=== PATIENT | male | born 1985 | race Caucasian/White ===

== ENCOUNTER 2016-04-06 19:31 | Emergency (ER) | payer BC ==
[2016-04-06 20:51] VITALS: BP 139/90; TEMP 98.3
--- NOTE | 2016-04-06 21:02 | ED.PDOC ---
History of Present Illness - General Chief Complaint: Bite: Animal/Insect/Human Stated Complaint: dog bite Time Seen by Provider: 04/06/16 20:57 Source: patient, RN notes reviewed, Vital Signs reviewed Exam Limitations: no limitations Additional Information: Stated he was serving a warrant and the persons dog that he was issuing a warrant suddenly bit him on his left thigh about 2 hours ago unprovoked and able to got the dog for quarantine. - History of Present Illness Timing/Duration: 1-3 hours Severity: mild Improving Factors: nothing Worsening Factors: nothing Allergies/Adverse Reactions: Allergies NO KNOWN ALLERGY Allergy (Verified 05/18/15 13:45) Home Medications: Ambulatory Orders Amoxicillin & Pot Clavulanate [Augmentin Xr 1000-62.5 mg] 1 tab PO BIDAC #20 tab 04/06/16 Review of Systems - Review of Systems Constitutional: States: no symptoms reported EENTM: States: no symptoms reported Respiratory: States: no symptoms reported Cardiology: States: no symptoms reported Gastrointestinal/Abdominal: States: no symptoms reported Genitourinary: States: no symptoms reported Musculoskeletal: States: no symptoms reported Skin: States: other - dog bite Neurological: States: no symptoms reported Endocrine: States: no symptoms reported Hematologic/Lymphatic: States: no symptoms reported Past Medical History (General) - Patient Medical History Hx MRSA: No Surgical History: no surgical history - Vaccination History Hx Tetanus, Diphtheria Vaccination: Yes - 2 yrs ago Hx Influenza Vaccination: No - Social History Hx Tobacco Use: Yes - Triage Comment ED Triage Comment: bruised area with abrasions to above left knee Family Medical History - Family History Father Family History: Unknown Living Status: Unknown Hx Family Hypertension: Yes Hx Cardiac Disease: Yes Hx Family Diabetes: Yes Physical Exam - Physical Exam General Appearance: Alert, No apparent distress Ears, Nose, Throat: hearing grossly normal, normal ENT inspection, normal pharynx Neck: non-tender, full range of motion, supple, normal inspection Respiratory: normal breath sounds, no respiratory distress Cardiovascular/Chest: normal peripheral pulses, regular rate, rhythm, no edema Gastrointestinal/Abdominal: normal bowel sounds, non tender, soft Back Exam: normal inspection, no CVA tenderness, no vertebral tenderness Extremity: normal range of motion, non-tender, normal inspection Skin Exam: normal color, warm/dry, other - superficial bite wound skin distal thigh Departure - Departure Clinical Impression: Puncture wound Dog bite of left thigh without complication Qualifiers: Encounter type: initial encounter Qualifier Code: (S71.152A) Open bite, left thigh, initial encounter Time of Disposition: 21:09 Disposition: Discharge to Home or Self Care Departure Forms: ED Discharge - Pt. Copy, Patient Portal Self Enrollment Instructions: DI for Animal Bites Prescriptions: Amoxicillin & Pot Clavulanate [Augmentin Xr 1000-62.5 mg] 1 tab PO BIDAC #20 tab Home Medications: Ambulatory Orders Amoxicillin & Pot Clavulanate [Augmentin Xr 1000-62.5 mg] 1 tab PO BIDAC #20 tab 04/06/16 Additional Instructions: RETURN TO EMERGENCY ROOM IF INCREASE PAIN SWELLING;FOLLOW UP WITH WORKERS CARLIE HOPPER
[2016-04-06] MEDS ORDERED: AMOXICILLIN TRIHYDRATE 250 MG CAP PO ONE (21:09)
[2016-04-06] MEDS ORDERED: AMOXICILLIN & POT CLAVULANATE 875 MG TAB PO ONE (21:09)
[2016-04-06 23:04] VITALS: O2SAT 98
== END 2016-04-06 21:40 | disposition home or self-care (01) ==
LOC: ER 19:31
DX: S71.152A Open bite, left thigh, initial encounter (principal); Z82.49 Family history of ischemic heart disease and other diseases of the circulatory system; Z83.3 Family history of diabetes mellitus; W54.0XXA Bitten by dog, initial encounter